=== PATIENT | female | born 1985 | race Caucasian/White ===

== ENCOUNTER 2022-04-02 22:26 | Emergency (ER) | payer MEDICAID ==
[~2022-04-02] VITALS: Ht 165.1 cm; Wt 86.0 kg
[2022-04-02] MEDS ORDERED: TETANUS, DIPHTHERIA, PERTUSSIS VAC/PF 0.5ML (>10YR OLD) IM ONE (23:00)
[2022-04-02] MEDS ORDERED: CEFAZOLIN 1000MG PREMIX 50 ML IV ONE (23:00)
[2022-04-02 23:21] LABS: CHLORIDE 108 mEq/L (98-107)
[2022-04-02 23:26] VITALS: BP 142/102
[2022-04-02 23:28] LABS: ETHANOL BLOOD 146 mg/dL
[2022-04-02 23:50] LABS: BASOPHILS % 0.4 % (0.0-2.0); EOSINOPHILS % 0.2 % (0.0-5.0); HEMATOCRIT. 45.6 % (36.0-48.0); HEMOGLOBIN. 15.1 g/dL (12.0-16.0); LYMPHOCYTES % 19.7 % (20.0-50.0); MEAN CORPUSCULAR HEMOGLOBIN 30.8 pg (28.0-32.0); MEAN PLATELET VOLUME 9.4 fl (7.4-10.4); MONOCYTES % 6.8 % (2.0-8.0); NEUTROPHILS % 72.9 % (40.0-76.0); PLATELET 333 x1000/uL (130-400); RED CELL DISTRIBUTION WIDTH 14.5 % (11.6-14.6)
== END 2022-04-02 23:39 | disposition left against medical advice (07) ==
LOC: ER 22:26
DX: F10.129 Alcohol abuse with intoxication, unspecified (principal); S01.01XA Laceration without foreign body of scalp, initial encounter; Y90.9 Presence of alcohol in blood, level not specified; Y04.0XXA Assault by unarmed brawl or fight, initial encounter; Y93.89 Activity, other specified; Y92.89 Other specified places as the place of occurrence of the external cause; Y99.8 Other external cause status
CPT/HCPCS: 12001; 36415; 80053; 80320; 85025; 90471; 90715; 96365; 99284; J0690; G0480

== ENCOUNTER 2024-04-21 14:44 | Emergency (ER) | payer MEDICAID ==
[~2024-04-21] VITALS: Ht 160 cm; Wt 82.0 kg
[2024-04-21 14:46] VITALS: BP 135/83; TEMP 98.3; O2SAT 97
[2024-04-21 14:48] VITALS: PULSE 117; RESP 18; O2SAT 99
[2024-04-21] MEDS: CYCLOBENZAPRINE 10MG TABLET PO ONE (17:56)
[2024-04-21 18:44] LABS: CLARITY URINE CLOUDY (CLEAR); COLOR URINE DARK YELLOW (YELLOW); GLUCOSE URINE NEGATIVE (NEGATIVE); KETONES URINE NEGATIVE (NEGATIVE); LEUKOCYTE ESTERASE URINE 3+ (NEGATIVE); NITRITE URINE POSITIVE (NEGATIVE); OCCULT BLOOD URINE 1+ (NEGATIVE); PH URINE 6.5 (4.5-8.0); PROTEIN URINE 2+ (NEGATIVE); SPECIFIC GRAVITY URINE 1.011 (1.005-1.030)
[2024-04-21 18:56] LABS: BACTERIA URINE 2+; SQUAMOUS EPITHELIAL CELL URINE 1+ /lpf (RARE/1+)
[2024-04-21 19:36] LABS: DIFFERENTIAL COMMENT 1; HEMATOCRIT. 42.9 % (36.0-48.0); HEMOGLOBIN. 13.9 g/dL (12.0-16.0); MEAN CORPUSCULAR HEMOGLOBIN 29.5 pg (28.0-32.0); MEAN CORPUSCULAR HGB CONC 32.3 g/dL (31.0-37.0); MEAN CORPUSCULAR VOLUME 91.4 fL (81.0-99.0); RED CELL DISTRIBUTION WIDTH 15.1 % (11.6-14.6); WHITE BLOOD COUNT 14.2 x1000/uL (4.5-11.0)
[2024-04-21 19:40] LABS: CHLORIDE 102 mEq/L (98-107); POTASSIUM 3.8 mEq/L (3.5-5.1); SODIUM 136 mEq/L (136-145)
[2024-04-21 19:41] LABS: CALCIUM 9.6 mg/dL (8.7-10.4); CARBON DIOXIDE 27 mEq/L (21-32)
[2024-04-21 19:45] LABS: HCG SCREEN NEGATIVE
[2024-04-21 19:46] LABS: CREATININE 0.8 mg/dL (0.6-1.0); GLUCOSE 104 mg/dL (70-105); UREA NITROGEN BLOOD 7 mg/dL (9-23)
[2024-04-21 19:50] LABS: MEAN PLATELET VOLUME 10.2 fl (7.4-10.4); PLATELET 181 x1000/uL (130-400); PLATELET ESTIMATE NORMAL
[2024-04-21] MEDS ORDERED: CEFTRIAXONE 1GM/50ML 50 ML IV ONE (20:30)
[2024-04-21] MEDS ORDERED: SODIUM CHLORIDE 0.9% (SEPSIS BOLUS) IV ONE (20:30)
== END 2024-04-21 21:02 | disposition left against medical advice (07) ==
LOC: ER 14:44
DX: A41.9 Sepsis, unspecified organism (principal); N39.0 Urinary tract infection, site not specified; F32.A Depression, unspecified; F10.20 Alcohol dependence, uncomplicated; Z98.890 Other specified postprocedural states; Y90.9 Presence of alcohol in blood, level not specified
CPT/HCPCS: 99283; 80048; 81003; 81025; 84703; 85025; 87086; 87186; 87077; 36415; J7030